=== PATIENT | female | born 1970 | race Caucasian/White ===

== ENCOUNTER 2018-09-05 18:11 | Emergency (ER) | payer OTHER, SELFPAY ==
[2018-09-05 18:13] VITALS: BP 113/63; PULSE 67; RESP 14; TEMP 36.7; O2SAT 99; BMI 22.8
--- NOTE | 2018-09-05 18:22 | ED.DCSUM_ITS ---
- ER Visit Summary Date of Service: 09/05/18 Chief Complaint: Right ankle pain History of Present Illness: The patient is a 48 F who presents with right ankle pain. Earlier today she jumped off of a wagon and twisted her ankle. She states it hurts so much that she did not walk on it. She did note some sw elling. She took ibuprofen immediately after it happened and no previous fractures or injuries to this ankle. Physical Examination: Vital signs are reviewed. Right ankle exam reveals tenderness on the bilateral malleoli. Decreased range of motion secondary to pain. She does have swelling laterally. 2+ DP pulses are palpated. Test Results: X-ray reveals a distal fibula fracture on the right Emergency Department Course and Treatment: Patient will be put in a walking boot given crutches. I will give her Holt for pain at home. She will be given orthopedic follow-up Treatment Plan: [] Disposition: Discharge Impression: Right distal fibula fracture, closed This note was generated with [employer] dictation software. It may contain incorrect words, spelling, and punctuation that were not noted in review of the chart prior to signing
--- NOTE | 2018-09-05 18:25 | RAD_ITS ---
STUDY: X-RAY - RIGHT ANKLE REASON FOR EXAM: Female, 48 years old. Fall, right ankle pain. TECHNIQUE: 3 view(s) of the ankle. COMPARISON: None. FINDINGS: There is marked lateral soft tissue swelling. Small ankle joint effusion is present. There is a spiral fracture of the distal fibula beginning 2.8 cm above the plafond and and extending to the level of the talar dome. No displacement or angulation. Bony structures are otherwise unremarkable. Visualized distal talus is intact. RAD/Ankle min 3 Views IMPRESSION: Nondisplaced distal fibular fracture as described above. Small joint effusion. Electronically Signed: Donna Mujica MD at 19:06 EDT Tel , Service support ,
--- NOTE | 2018-09-05 19:23 | ED.DEP ---
ED Disposition - Plan for ED Patient: Disposition: Home or Assisted Living Instructions: ANKLE FRACTURE (Distal Fibula), closed Prescriptions: Hydrocodone Bitart/Apap 5-325 [[place] 5MG-325MG] 1 tab PO Q6H PRN PRN 3 Days #10 tab PRN Reason: Pain Prescription Printed Referrals: Vishal Roland, [facility]C [Primary Care Provider] - Cleopatra Wilson DO [STAFF PHYSICIAN] -
[2018-09-05 19:44] VITALS: BP 113/63; PULSE 67; RESP 15; O2SAT 99
== END 2018-09-05 19:45 | disposition home or self-care (01) ==
PROVIDERS: Emergency Provider Emergency Medicine; Family Provider Nurse Practitioner Family; PCP Nurse Practitioner Family
DX: S82.831A Other fracture of upper and lower end of right fibula, initial encounter for closed fracture (principal); W17.89XA Other fall from one level to another, initial encounter; Y93.39 Activity, other involving climbing, rappelling and jumping off; Y92.9 Unspecified place or not applicable
CPT/HCPCS: 73610; 99284

== ENCOUNTER → 2018-09-08 11:14 | Outpatient (CLI) | payer OTHER, SELFPAY ==
[2018-09-08 10:28] VITALS: BMI 22.8
--- NOTE | 2018-09-08 11:15 | RAD_ITS ---
STUDY: X-RAY - RIGHT KNEE REASON FOR EXAM: Knee pain, injury. TECHNIQUE: 4 view(s) of the knee. COMPARISON: None. FINDINGS: Normal visualized distal femur. Normal visualized proximal tibia and fibula. Normal proximal tibiofibular articulation. Normal medial femorotibial compartment. Normal lateral femorotibial compartment. Normal patellofemoral articulation. The soft tissue structures are unremarkable. RAD/Knee 4 or More Views IMPRESSION: Normal x-ray examination of the right knee. Electronically Signed: Suraj Goncalves MD at 13:57 EDT Tel , Service support ,
== END ==
PROVIDERS: Family Provider Nurse Practitioner Family; PCP Nurse Practitioner Family; Referring Provider Orthopaedic Surgery; Visit Provider Orthopaedic Surgery
DX: M25.571 Pain in right ankle and joints of right foot (principal)
CPT/HCPCS: 73564

== ENCOUNTER → 2018-09-11 10:33 | Outpatient (CLI) | payer OTHER, SELFPAY ==
[2018-09-10 13:18] VITALS: BMI 22.8
[2018-09-11 12:25] LABS: Absolute Lymphocyte Count 1.38 X10^3/ul (0.83-4.51); Absolute Neutrophil Count 3.5 X10^3/uL (2.0-7.7); Basophil# 0.03 X10^3/uL; Basophil% 0.5 % (0-1); Eosinophil# 0.15 X10^3/uL; Eosinophils% 2.7 % (0-5); Hematocrit 39.2 % (37-47); Hemoglobin 13.3 g/dl (12.0-15.0); Lymphocyte # 1.38 X10^3/ul (4.0); Lymphocyte % 25.2 % (19-41); Mean Corp Hgb Conc 33.9 g/gl (32-36); Mean Corpuscular Hgb 31.1 pg (27.0-32.0); Mean Corpuscular Volume 91.8 fL (81-99); Mean Platelet Vol. 11.3 fl (6.2-12.0); Monocyte# 0.38 X10^3/uL; Monocyte% 6.9 % (0-10); Neutrophil # 3.53 X10^3/uL (2.7-7.7); Neutrophil % 64.7 % (47-70); Platelet Count 223 K/mm3 (150-450); RBC Distribution Width CV 13.1 % (11.6-14.6); RBC Distribution Width SD 43.6 fl (35.1-43.9); Red Blood Count 4.27 M/mm3 (4.2-5.4); White Blood Count 5.5 K/mm3 (4.4-11.0)
[2018-09-11 12:26] LABS: Differential Indicated SCAN CRITERIA MET; POSITIVE COUNT NO; POSITIVE DIFFERENTIAL NO; POSITIVE MORPHOLOGY YES
[2018-09-11 12:59] LABS: AST(SGOT) 16 U/L (15-37); Alanine Aminotransfer ALT/SGPT 19 U/L (13-56); Albumin, Serum 3.6 g/dL (3.2-5.0); Alkaline Phosphatase 46 U/L (45-117); Anion Gap 3 (5-15); BUN 9 mg/dL (7-18); BUN/Creat Ratio 12.9 RATIO (10-20); Calcium,Total 8.9 mg/dL (8.5-10.1); Chloride 104 mmol/L (98-107); EST Glomerular Filtration Rate 96 mL/min (>60); Est Glom Filt Rate - Afr Amer 116 mL/min (>60); Globulin 3.5 g/dL (2.2-4.2); Glucose 85 mg/dL (74-106); Potassium 4.1 mmol/L (3.5-5.1); Protein, Total 7.1 g/dL (6.4-8.2); Sodium Level 137 mmol/L (136-145)
[2018-09-11 13:04] LABS: Vitamin D,25 Hydroxy 20.8 ng/mL (29.95-100.01)
== END ==
PROVIDERS: Family Provider Nurse Practitioner Family; PCP Nurse Practitioner Family; Referring Provider Nurse Practitioner Family; Visit Provider Family Medicine
DX: Z01.818 Encounter for other preprocedural examination (principal); S82.2 Fracture of shaft of tibia
CPT/HCPCS: 36415; 80053; 82306; 85025

== ENCOUNTER 2018-09-15 12:01 | Day surgery (SDC) | payer SELFPAY ==
[2018-09-08 11:49] VITALS: BMI 22.8
[2018-09-10 13:18] VITALS: BMI 22.8
[2018-09-15] VITALS (9 sets, daily range): BP systolic 92–116; BP diastolic 55–79; PULSE 52–64; RESP 16; TEMP 36.1–37.1; O2SAT 94–100; BMI 22.4
[2018-09-15 12:24] LABS: Internal QC Validated? YES +Cl - CLEAR BKGD; Pregnancy, Urine Negative Negative
[2018-09-15] MEDS: Cefazolin 2 GM in 0.9% Normal Saline 100 ML IV (13:31)
[2018-09-15] MEDS: Bupivacaine Mpf 0.5% 30 ML VIAL (14:05)
--- NOTE | 2018-09-15 15:55 | DCINST_ITS ---
Discharge Diet: No Restrictions Discharge Activity: May not drive while taking narcotic pain medications., May Not Shower, Use Crutches Weight Bearing Status: No weight bearing Keep extremity elevated above heart level: Right Leg Call your doctor if your incision/area has: Continuous Slow Oozing, Sudden Increased Bleeding, Increased Pain/ Swelling, Increased Redness, Foul Smelling Discharge, Swelling at the incision site Call your doctor if you observe: Fever of 101 or Higher, Shortness of breath, Chest pain, Calf discomfort, Uncontrolled pain Cleanse incision/area with: Keep Dressing Clean & Dry Allergies/Adverse Reactions: Allergies No Known Allergies Allergy (Verified 09/15/18 12:23) Medications to take at Discharge NK 09/15/18 Primary Care Physician: Vishal Roland, [facility]C [Primary Care Provider] - Test Results: Test results from this visit will be discussed in further detail at your follow- up appointment, if applicable. Please Follow Up With: Fartun Henriquez DPM When: [facility]; call [phone] sooner if concerns Proposed Discharge Date: 09/15/18
--- NOTE | 2018-09-15 16:00 | OP.PCM_ITS ---
Problem List (1) Ankle syndesmosis disruption Status: Acute Qualifiers: Encounter type: subsequent encounter (2) Closed displaced oblique fracture of shaft of right fibula Status: Acute Qualifiers: Encounter type: subsequent encounter Fracture healing: with routine healing Qualified Code(s): S82.431D - Displaced oblique fracture of shaft of right fibula, subsequent encounter for closed fracture with routine healing (3) Pain in right ankle Status: Acute Qualifiers: Chronicity: acute Qualified Code(s): M25.571 - Pain in right ankle and joints of right foot Report of Operation Date of Procedure: 09/15/18 Pre-Operative Diagnosis: right distal fibula fracture with syndesmosis rupture Post-Operative Diagnosis: right distal fibula fracture with syndesmosis rupture Surgery/Procedure Performed:: open reduction internal fixation right ankle fracture including syndesmosis reduction Description of Surgical Findings:: hemostasis controlled with right thigh tourniquet 80 min, 315 mmHg findings: fracture and syndesmosis reduced and ankle mortise intact Materials: one arthrex 3.0 mm fibula right nail (130mm), two syndesmosis tight ropes, three 2.7 mm non locking cortical screws, 2-0 vicryl, 4-0 nylon The patient tolerated the procedure and anesthesia well. She was transported to the pacu with vital signs stable and vascular status intact to the right lower extremity. She will be discharged home upon continued stability and pain control this evening. Post operative orders were entered electronically. Post operative xrays were reviewed with hardware intact and ankle mortise and fracture is maintained in a reduced position. online marketing coordinator: none - Full Stack Net Developer: Morris Sauer PGY2. Surgeon: Fartun Henriquez DPM Type of Anesthesia:: General, Local - Preoperative injection: 1:1 mix of 1% lidocaine plaine with 0.5% marcaine plain administered in local infiltrative high ankle block manner to the right lower extremity (20 cc), Other - right lower extremity regional block was provided in the post operative setting Specimen's removed: none Estimated Blood Loss (mL): < 200 mL Description of Procedure: Indications: This 48 year old female with no known past significant medical history fell off of a wagon on 09/05/2018 in which she sustained an ankle fracture. She presented to the emergency room in which her fracture was splinted with a posterior mold and she was referred for outpatient follow up. Her neurovascular status remains intact. She did have suspected poison alexandra to the right lower extremity. This area was not at the direct surgical planned incision site but was on the surgica l limb. She did also present with swelling and bruising. A soft compressive multilayer wrap was applied. Radiographically, she demonstrated a distal fibula spiral oblique fracture with minimal displacement and medial gutter widening consistent with a syndesmosis injury. There was no proximal fibula fracture noted. There is no fracture blistering or tissue necrosis noted clinically. She did have a preoperative history and physical and clearance performed by Dr. Boo. Her preoperative diagnostic data was without CBC or CMP gross abnormality. Her vitamin D level was low at 20.8 and I recommend supplementation. The preoperative indication, planned procedure, possible benefits, risks, complications, and anticipated healing time and management were discussed in detail the patient today. She understands and elects to proceed with surgery at this time. No guarantees were made. She understands risks and complications may include but are not limited to the following: pain, swelling, scarring, delayed or nonhealing, infection, chronic pain syndrome, hardware failure, need for revisional surgery, blood clot, allergic reaction, loss of limb, function, or life. I answered all of her questions. The informed surgical consent and limb were signed. Procedure in detail: The patient was transported to the operating room via cart and placed on the operating table in supine position. Final verification of the patient, limb designation, and planned surgery during the time out procedure. Preoperative local anesthesia was administered by the podiatry team as noted. General a nesthesia was initiated by the anesthesia team. Preoperative antibiotics were administered intravenously. A well-padded pneumatic right thigh tourniquet was placed. The right lower extremity was prepped and draped in the usual aseptic manner. Surgery began in the following manner: An Esmarch bandage was used to exsanguinate the right lower extremity and the tourniquet was inflated at this time. Attention was first directed to the lateral aspect of the right distal fibula in which a 2-1/2 cm linear incision was made through the skin. Blunt dissection was performed down to the fracture hematoma site. Care was taken to identify, protect, and retract all neurovascular structures at this point and throughout the remainder of surgery. The fracture fragment was gently mobilized and reduced with a [id number] bone reduction forcep. Next, a 1 cm linear incision was made distal to the distal fibula tip and intraoperative fluoroscopy was used to place a guidewire in preparation for intramedullary fibula daniela. After appropriate positioning of the guidewire, serial reaming and application of fibular daniela was applied according to standard protocol utilizing proper AO fixation and technique guide. Next the talons were deployed to engage this in a secure fashion proximally. The distal screws were next applied to 3 holes through the outrigger. Next, attention was directed to fixing the associated syndesmosis injury. The syndesmosis was reduced with hand manipulation and the outrigger was removed to allow the desired reduction angle and force. Two FiberWire Arthrex tight ropes were applied at offset angles to hand tightness. Reduction was performed according to clinical and radiographic stress test and these were further secured in place. Upon inversion eversion stress test and stress dorsiflexion external rotation there was no longer any medial gutter widening or instability noted. The distal tibia-fibula overlap was also improved and the ankle was taken through smooth gliding gentle sagittal plane range of motion without crepitation. Intraoperative fluoroscopy was used to confirm that the fibula fracture site remained reduced and was in good alignment and rotation with the intramedullary fibular daniela secured in place. The length of the fibula was also maintained and the ankle mortise is intact. No acute injuries were noted. The end cap was next applied to the fibular daniela. The tourniquet was deflated at this time and brisk capillary refill time was noted to all digits of the right foot. No pulsatile bleeding was noted. Pressure was applied to maintain hemostasis. Deep closure was obtained with Vicryl suture. The skin was reapproximated utilizing 4-0 nylon horizontal and simple suture technique. A dressing consisting of Betadine soaked gauze, abdominal pad, Kerlix and Sanchez wrap were applied. Additionally, a well-padded posterior mold with sugar tong splint was applied with the right lower extremity in a rectus position. After procedure: The patient tolerated the procedure and anesthesia well. She was transported to the PACU with vital signs stable and vascular status intact to the right lower extremity. She was advised to keep her dressing clean, dry, and intact until [facility]-up [facility]. She was advised to ice and elevate for pain and inflammation management. To maintain a strict nonwei ghtbearing status of the right lower extremity with continued crutches use. I recommend vitamin D supplementation due to her vitamin D level of 20.8 to optimize bone healing. Her postoperative orders were entered electronically. She was provided with a right lower extremity distal regional block by the anesthesia team and was discharged home this evening. Fartun Henriquez DPM, [facility] - Complications none - Admit VTE Documentation VTE Present on Admission: No VTE Mechan Device Prophylaxis: SCD's VTE Pharm Prophylaxis ordered?: No Reason prophylaxis not ordered:: Procedure Not Indicated
--- NOTE | 2018-09-15 16:15 | RAD_ITS ---
STUDY: X-RAY - RIGHT ANKLE REASON FOR EXAM: Female, 48 years old. Postop. TECHNIQUE: 3 view(s) of the ankle. COMPARISON: Intraoperative images, September 15, 2018. Right ankle, September 05, 2018. FINDINGS: There is a short medullary daniela within the distal fibula with fixating screws. The fibular fracture in normal alignment. There is evidence of tabs along the medial aspect of distal fibula nonopaque wires connecting the tibia and fibula to restore the integrity of the ankle joint. Normal tibiotalar articulation and ankle mortise. Normal visualized talus and calcaneus. The visualized subtalar, talonavicular, calcaneocuboid and tarsal articulations are normal. There is a semiopaque splint along the posterior aspect of the lower leg and plantar aspect of the foot. RAD/Ankle min 3 Views IMPRESSION: Status post internal fixation of the right ankle fracture. Electronically Signed: Dallas Seals DO at 16:34 EDT Tel [phone], Service support ,
--- NOTE | 2018-09-15 16:45 | RAD_ITS ---
STUDY: X-RAY - RIGHT ANKLE REASON FOR EXAM: Female, 48 years old. Bimalleolar fracture. TECHNIQUE: 10 intraoperative view(s) of the ankle. COMPARISON: September 05, 2018. FINDINGS: The provided images demonstrate a medullary daniela placed through the distal fibula with fixation screws. There are plates along the medial aspect of the distal tibia consistent with an opaque cables extending through the tibia and fibula 2 reinforce the ankle. The fracture is in normal alignment. Please refer to the operative report for further details. RAD/Ankle min 3 Views IMPRESSION: Internal fixation of a right ankle fracture in the OR. Electronically Signed: Dallas Seals DO at 16:13 EDT Tel [phone], Service support ,
== END 2018-09-15 18:28 | disposition home or self-care (01) ==
LOC: SDC 12:04 → AC 12:04
PROVIDERS: Anesthesiology; Family Provider Nurse Practitioner Family; PCP Nurse Practitioner Family; Referring Provider Podiatrist; Visit Provider Podiatrist
PROC: (CPT 27829; principal; 2018-09-15 13:15)
DX: S82.431A Displaced oblique fracture of shaft of right fibula, initial encounter for closed fracture (principal); S93.431A Sprain of tibiofibular ligament of right ankle, initial encounter; W17.89XA Other fall from one level to another, initial encounter; Y93.9 Activity, unspecified; Y92.9 Unspecified place or not applicable
CPT/HCPCS: 01480; 27829; 64445; 73610; 76000; 81025; C1713; J7120; J2405

== ENCOUNTER 2018-11-12 12:30 | Outpatient (RCR) | payer SELFPAY, OTHER ==
[2018-09-15 12:24] VITALS: BMI 22.4
--- NOTE | 2018-11-11 16:50 | HP.PTEVAL ---
Patient's Visit Information FAUSTO BROWN is a 48 year old F referred to Physical Therapy by Fartun Henriquez DPM with a diagnosis of R ankle fracture with ORIF. Date of Evaluation: 11/04/18 Physical Therapist: Anthony Hernandez DPT - Visit Plan Frequency: 2x /Week Duration: 4-6 Weeks Plan: Start with ankle strengthening/ROM, progressive tolerance to WBing exercises. Progress functional strengthening once tolerating. May add in desensitization activities to assist to reduction in symptoms. - Subjective Findings: Pt. is here today for her initial evaluation with diagnosis of Rgith ankle fracture with ORIF and syndesmosis repair. Pt. had surgery on 09/15/18. Pt. arrives today with 1 crutch and wearing her CAM boot. From the papper work sent by physician she was to wean to partial WBing over the next few weeks. Pt. reports no pain currently, but is eager to get rid of her CAM boot and back to her shoe. Pt. reports working on some light ROM exercises, but minimally at home. Pt. denies N/T. Pt. is sleeping wihtout issues and reports minimal issues with walking. Pt. 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 - Pain R ankle Pain Intensity (Out of 10): 0 Pain Intensity Range: 3 - Objective POSTURE: Pt. is able to stand with CAM boot without increase in symptoms, with partial WBing. PALPATION: Pt. has marked edema in distal LE, 1+ pitting at dorsum of foot, Pt. reports she has been on her feet for most of the day. Pt. reports progressing to partial WBing in a matter of hours after seeing physician. NEURO: normal throughout. ROM: R ankle- DF- 8deg, PF 44deg, INV 6deg, EVR 4deg. PROM- DF 10deg, PF 49deg, INV 10deg, EVR 8deg. No pain with ROM testing. MMT: Pt. has 4/5 strength generally throughout. No pain with MMT this date. GAIT: Pt. ambulates with partial WBing with 1 crutch this date. I suggested that she go back to 2 crutches adn progress as physician suggested over a longer period. - Goals Goal 1:: Pt. to be I with HEP. Goal Time Frame: 4-6 Weeks Goal 2:: Pt. to have increased R ankle ROM symmetrical to L without increase in symptoms. Goal Time Frame: 4-6 Weeks Goal 3:: Pt. to have increased R ankle strength by 1/2 grade throughout effected musculature. Goal Time Frame: 4-6 Weeks Goal 4:: Pt. to ambulate with proper WBing without increase in symptoms. Goal Time Frame: 4-6 Weeks Goal 5:: Pt. to get back to all work and house hold actvities without issues. Goal Time Frame: 4-6 Weeks - Rehabilitation Potential Physical Therapy Diagnosis: Pt. has signs and symptoms consistent with R ankle fractue with ORIF with subsequent weakness, hypombility and difficulty with gait. Pt. would benefit from PT to address above limitations progressing back to gait as tolerated. Rehabilitation Potential: Excellent - Anticipated Interventions Patient/Client Instruction: Educate patient on: Condition, Plan of Care, Risk Factors, Benefits of Fitness Program For the Purpose of:: To facilitate caregiver knowledge, To improve self management, To prevent re-injury, To improve ability to perform tasks related to life management, To improve tolerance to ADL's Therapeutic Exercise to Include: Strength training, Power training, Endurance training, Body mechanics, Postural training, Flexibilty training, Gait and locomotor training, Passive ROM, Active ROM For the Purpose of:: To decrease pain, To decrease swelling/inflammation, To increase ROM, To improve nutrient delivery to tissue, To increase oxygenation perfusion, To improve muscle performance and motor function, To improve gait and locomotor functions, To improve health of tissue, To decrease soft tissue restriction, To increase flexibility/ROM Manual Therapy Techniques to Include: Mobilization, Passive ROM, Soft tissue mobilization For the Purpose of:: To decrease pain, To decrease swelling/inflammation, To increase ROM, To improve nutrient delivery to tissue, To increase oxygenation perfusion, To improve muscle performance and motor function TENS: Yes IF ES: Yes Cryotherapy (ice pack, ice massage): Yes For the Purpose of:: To decrease pain, To decrease swelling/inflammation, To increase ROM, To improve nutrient delivery to tissue, To increase oxygenation perfusion Thank you for the opportunity to evaluate your patient. For Medicare and Medicare HMO plans, please review the plan of care and approve it. It will need to be FAXED BACK to us at [phone] for Medicare purposes. For Medicare only, by signing this I certify the plan of care. Please let me know if there are questions or concerns regarding this plan of care. Physician Signature: Date:
== END 2018-11-12 19:00 | disposition home or self-care (01) ==
LOC: PT 12:30
PROVIDERS: Family Provider Nurse Practitioner Family; PCP Nurse Practitioner Family; Referring Provider Podiatrist; Visit Provider Podiatrist
DX: Z98.890 Other specified postprocedural states (principal)
CPT/HCPCS: 97110; 97161

== ENCOUNTER 2021-11-13 14:12 | Emergency (ER) | payer OTHER, SELFPAY ==
[2021-11-13 14:23] VITALS: BP 118/71; PULSE 60; RESP 18; TEMP 36.2; O2SAT 100; BMI 22.9
--- NOTE | 2021-11-13 15:17 | CT_ITS ---
STUDY: CT BRAIN WITHOUT CONTRAST REASON FOR EXAM: Female, 51 years old. dizziness RADIATION DOSAGE (If Supplied By Facility): CTDIvol = ( 44.99 ) mGy, DLP = ( 796.11 ) mGycm TECHNIQUE: Transaxial CT imaging of the brain was performed without administration of intravenous contrast material. Individualized dose optimization techniques were used for this CT. COMPARISON: No relevant priors. FINDINGS: Normal soft tissue structures. Normal calvarium. Normal size ventricles and extra-axial spaces for the patient''s age. Normal white matter tracts of the cerebral hemispheres. Normal basal ganglia and thalami. Normal brainstem. Normal cerebellum. There is no intracranial hemorrhage. There are no findings of an acute ischemic infarction. Normal visualized paranasal sinuses. CT/Brain/Head without Contrast IMPRESSION: Normal unenhanced CT scan of the brain. Electronically Signed: Marquez Hernandez MD, [place] at 16:30 EDT ,
--- NOTE | 2021-11-13 15:18 | EDS_ITS ---
HPI History of Present Illness Chief Complaint: Dizziness Informant: patient and spouse/S.O. Narrative Narrative: Brought in by EMS for vertigo symptoms with room spinning while sitting with this at 7:30 AM.'s been waxing and waning. 1131 reports had symptoms along with getting short of breath. Denies chest pains. Denies any recent cough. EMS contacted she had emesis with vertigo symptoms in the ambulance. No medications given. No allergies. Denies any past medical history. States that similar symptom in the past several less significant. Denies any sinus congestion no tinnitus. Denies headache. Symptoms seem to worse when looking towards the le ft. No visual changes.n Prior similar symptoms: Yes PFSH PFSH Medical History Non-smoker Home Medications meclizine 25 mg tablet 25 mg PO TID PRN dizziness #20 tabs 11/13/21 [Rx Last Taken Unknown] potassium chloride 20 mEq tablet,extended release 20 meq PO DAILY #7 tabs 11/13/21 [Rx Last Taken Unknown] Allergy/AdvReac Type Severity Reaction Status Date / Time No Known Allergies Allergy Verified 11/13/21 14:30 Social History Smoking Status: Never smoker ROS ROS ED Constitutional Constitutional ED: Denies chills, fever(s) or sweats Eyes Eyes: Denies change in vision ENT ENT ED: Denies dysphagia or sore throat Cardiovascular Cardiovascular: Denies chest pain, leg edema, palpitations or racing heartbeat Respiratory/Chest Respiratory/Chest: Denies cough, dyspnea or dyspnea on exertion Gastrointestinal Gastrointestinal: Reports nausea and vomiting; Denies abdominal pain or diarrhea Genitourinary Genitourinary ED: Denies dysuria, hematuria or urinary frequency Musculoskeletal Musculoskeletal: Denies back pain, extremity pain or neck pain Integumentary Denies rash or wounds Neurologic Neurologic: Reports other Details: Dizziness ; Denies headache(s), paresthesias or weakness EXAM Physical Exam Const Vital Signs: 11/13/21 14:23 11/13/21 15:08 11/13/21 16:00 Temperature 97.1 F L Temperature Source Temporal Pulse Rate 60 90 Respiratory Rate 18 16 Respiratory Effort Short of Breath Respiratory Pattern Normal Blood Pressure 118/71 113/75 Blood Pressure Mean 86 87 Pulse Ox 100 98 Oxygen Delivery Method Room Air Room Air 11/13/21 18:07 Temperature Temperature Source Pulse Rate 75 Respiratory Rate 16 Respiratory Effort Respiratory Pattern Blood Pressure 129/78 H Blood Pressure Mean Pulse Ox 98 Oxygen Delivery Method Positive well nourished and well developed General Appearance ED: well developed and NAD HEENT Reports TM's clear and moist mucous membranes normocephalic and atraumatic Tympanic Membrane ED: Yes TM's clear Eyes PERRL, EOMs intact bilaterally and conjunctivae normal Eyes Narrative: No nystagmus General Eye ED: Yes normal appearance of both eyes Neck no lymphadenopathy and supple General: Negative for tenderness Chest Wall Chest: Negative for tenderness Resp normal respiratory effort and normal air movement Resp Narrative: Symmetric breath sounds Effort and Inspection: symmetric chest movement; Negative for respiratory distress Cardio regular rate, regular rhythm and no murmurs Peripheral Pulses: pulses 2+ throughout GI normal to inspection, nondistended, normoactive bowel sounds and non-tender Palpation: Negative for guarding or rebound tenderness present Back/Spine no CVA tenderness and no thoracic nor lumbar tenderness Extremity normal to inspection General Extremety ED: Negative for edema or tenderness General Extremity: Negative for edema Neuro oriented x3, CN's II-XII intact bilaterally and no sensory deficits noted Neuro Narrative: NIH equals 0, Eyad-Hallpike was negative however felt symptoms looking the left without nystagmus. Sensorium / Orientation: awake and alert Skin no rashes or lesions noted and no wounds MDM MDM MDM Narrative Medical decision making narrative: Patient presenting with vertigo symptoms however there is no nystagmus with the Norphlet-Hallpike she had symptoms with going to the left side. Treated with IV Reglan CT brain was negative. Labs obtained noting potassium 2.8 sodium 131. She does not take daily medicines. Clinically is feeling better on reevaluation potassium orally given in the ED along with 1 week of supplement. She ambulated multiple times to the restroom with no return of symptoms. Prescription for meclizine. Return precautions. All questions were answered. She will follow- up as an outpatient. Lab Data Attestation: I reviewed the patient's lab results. Labs: Laboratory Results - last 24 hr 11/13/21 11/13/21 15:30 15:30 WBC 7.5 RBC 3.81 L Hgb 12.5 Hct 35.4 L MCV 92.9 MCH 32.8 H MCHC 35.3 RDW Std Deviation 40.7 RDW Coeff of Mode 11.9 Plt Count 244 MPV 9.9 Immature Gran % (Auto) 0.400 Neut % (Auto) 85.0 H Lymph % (Auto) 9.8 L [place] % (Auto) 4.7 Eos % (Auto) 0.0 Baso % (Auto) 0.1 Absolute Neuts (auto) 6.4 Absolute Lymphs (auto) 0.73 L Nucleated RBC % 0 Sodium 131 L Potassium 2.8 L Chloride 95 L Carbon Dioxide 25.0 Anion Gap 11 BUN 5 L Creatinine 0.72 Estim Creat Clear Calc 84.11 Est GFR (MDRD) Af Amer 111 Est GFR (MDRD) Non-Af 92 BUN/Creatinine Ratio 7.0 L Glucose 105 Calcium 8.5 Radiography Diagnostic Testing: Clinical Impression(s) from Imaging Studies Brain CT 11/13/21 15:17 IMPRESSION: Normal unenhanced CT scan of the brain. Electronically Signed: Marquez Hernandez MD, [place] at 16:30 EDT Reading Location ID and State: [facility] / [place] Tel , Service support , Discharge Plan Triage Chief Complaint: Dizziness ED Provider: Tevin Nielsen Dx/Rx/DC Orders Clinical Impression: Vertigo, Acute hypokalemia, Acute hyponatremia Instructions: ED Hyponatremia, ED Hypokalemia, ED Vertigo, Unspecified Prescriptions: New meclizine 25 mg tablet 25 mg PO TID PRN (Reason: dizziness) Qty: 20 0RF potassium chloride 20 mEq tablet extended release 20 meq PO DAILY Qty: 7 0RF Primary Care Provider: Care Physician,No Primary Referrals: Care Physician,No Primary [Primary Care Provider] - Vishal Roland [facility], [facility] [Non-Staff] - 3-5 Days Activity Restrictions/Additional Instructions: CT head negative. Sodium 2.8. Take replacement medication as needed. Use meclizine as needed for vertigo symptoms. Your sodium 131. Follow-up as an outpatient. Return if any worsening symptoms. Disposition Disposition: Home, Self Care Discharge Date/Time: 11/13/21 18:08
[2021-11-13 15:43] LABS: Absolute Lymphocyte Count 0.73 X10^3/uL (0.83-4.51); Absolute Neutrophil Count 6.4 X10^3/uL (2.0-7.7); Basophil# 0.01 X10^3/uL; Basophil% 0.1 % (0-1); Hematocrit 35.4 % (37-47); Hemoglobin 12.5 g/dL (12.0-15.0); Lymphocyte # 0.73 X10^3/ul (0.83-4.51); Lymphocyte % 9.8 % (19-41); Mean Corp Hgb Conc 35.3 g/dL (32-36); Mean Corpuscular Hgb 32.8 pg (27.0-32.0); Mean Corpuscular Volume 92.9 fL (81-99); Mean Platelet Vol. 9.9 fl (6.2-12.0); Monocyte# 0.35 X10^3/uL; Monocyte% 4.7 % (0-10); NRBC Flagged by Analyzer 0 % (0-5); Neutrophil # 6.36 X10^3/uL (2.7-7.7); Platelet Count 244 K/mm3 (150-450); RBC Distribution Width CV 11.9 % (11.6-14.6); RBC Distribution Width SD 40.7 fl (35.1-43.9); Red Blood Count 3.81 M/mm3 (4.2-5.4); White Blood Count 7.5 K/mm3 (4.4-11.0)
[2021-11-13 15:53] LABS: Anion Gap 11 (5-15); BUN 5 mg/dL (7-18); Calcium,Total 8.5 mg/dL (8.5-10.1); Chloride 95 mmol/L (98-107); Creatinine, Serum 0.72 mg/dL (0.55-1.02); EST Glomerular Filtration Rate 92 mL/min (>60); Est Glom Filt Rate - Afr Amer 111 mL/min (>60); Estimated Creatinine Clearance 84.11 ml/min; Glucose 105 mg/dL (74-106); Potassium 2.8 mmol/L (3.5-5.1); Sodium Level 131 mmol/L (136-145)
[2021-11-13 16:00] VITALS: BP 113/75; PULSE 90; RESP 16; O2SAT 98
[2021-11-13] MEDS: Metoclopramide 10 MG/2 ML Vial 5 MG IV (16:01)
[2021-11-13] MEDS: Potassium Chloride Oral Tablet 20 MEQ 40 MEQ PO (17:57)
[2021-11-13 18:07] VITALS: BP 129/78; PULSE 75; RESP 16; O2SAT 98
== END 2021-11-13 18:08 | disposition home or self-care (01) ==
PROVIDERS: Emergency Provider Emergency Medicine; Visit Provider Emergency Medicine
DX: R42 Dizziness and giddiness (principal); E87.6 Hypokalemia; E87.1 Hypo-osmolality and hyponatremia; R11.10 Vomiting, unspecified; R06.02 Shortness of breath
CPT/HCPCS: 70450; 80048; 85025; 96361; 96374; 99284